=== PATIENT | male | born 1990 | race American Indian/Alaskan Native ===

== ENCOUNTER 2017-03-21 08:20 | Emergency (ER) | payer SELFPAY ==
[2017-03-21 08:37] VITALS: BP 135/89
--- NOTE | 2017-03-21 09:33 | Emergency Department Report ---
ED General Adult HPI - General Chief complaint: Skin Rash Stated complaint: SKIN RASH Time Seen by Provider: 03/21/17 09:07 Source: patient Mode of arrival: Ambulatory Limitations: No Limitations - History of Present Illness Initial comments: PT c/o skin rash x 1 week. PT states the rash starts off as irritation and then changes to bumps. PT states he has had this rash before. PT states he started getting the rash 3-4 years ago and he usually has 2-3 outbreaks a year, usually in the summer. PT states the rash will resolve on it's own. 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 PT states he was treated for scabies multiple times. PT states he does not think he has scabies because his close contacts do not have a rash and they have never had rash. PT states the only thing that helps the rash is prednisone or steroid shot. MD Complaint: rash -: Gradual, week(s) (1) Location: face, left, right, upper extremity, lower extremity Severity scale (0 -10): 0 Quality: burning, constant, other (irritated, itchy ) Consistency: constant Improves with: medication (in the past, this rash has improved with steroids ) Worsens with: other (hurts if pt scratches ) Associated Symptoms: rash. denies: fever/chills, loss of appetite, nausea/ vomiting, shortness of breath Treatments Prior to Arrival: none - Related Data Previous Rx's Medication Instructions Recorded Last Taken Type Cephalexin [Keflex] 500 mg PO Q6HR #40 capsule 03/21/17 Unknown Rx hydrOXYzine PAMOATE [Vistaril] 25 mg PO Q6HR PRN #12 capsule 03/21/17 Unknown Rx methylPREDNISolone [Medrol] 4 mg PO DAILY #1 tab.ds.pk 03/21/17 Unknown Rx Allergies Allergy/AdvReac Type Severity Reaction Status Date / Time iodine Allergy Angioedema Verified 06/06/15 18:26 shell fish Allergy Angioedema Uncoded 06/06/15 18:25 ED Review of Systems ROS: Stated complaint: SKIN RASH Other details as noted in HPI Comment: All other systems reviewed and negative Constitutional: denies: chills, fever Gastrointestinal: denies: abdominal pain, nausea, vomiting Musculoskeletal: denies: back pain Skin: rash ED Past Medical Hx - Past Medical History Hx Asthma: Yes - Surgical History Past Surgical History?: No - Social History Smoking Status: Never Smoker Substance Use Type: Marijuana - Medications Home Medications: Home Medications Medication Instructions Recorded Confirmed Last Taken Type Cephalexin [Keflex] 500 mg PO Q6HR #40 capsule 03/21/17 Unknown Rx hydrOXYzine PAMOATE [Vistaril] 25 mg PO Q6HR PRN #12 capsule 03/21/17 Unknown Rx methylPREDNISolone [Medrol] 4 mg PO DAILY #1 tab.ds.pk 03/21/17 Unknown Rx ED Physical Exam - General Limitations: No Limitations General appearance: alert, in no apparent distress - Head Head exam: Present: atraumatic, normocephalic, normal inspection - Eye Eye exam: Present: normal appearance, PERRL, EOMI. Absent: conjunctival injection - ENT ENT exam: Present: normal exam, mucous membranes moist, normal external ear exam - Neck Neck exam: Present: normal inspection, full ROM - Respiratory Respiratory exam: Present: normal lung sounds bilaterally. Absent: respiratory distress - Cardiovascular Cardiovascular Exam: Present: regular rate, normal rhythm - Extremities Exam Extremities exam: Present: full ROM, normal capillary refill. Absent: normal inspection (rash noted to extremities ), tenderness, pedal edema, joint swelling , calf tenderness - Back Exam Back exam: Present: normal inspection, full ROM - Neurological Exam Neurological exam: Present: alert, oriented X3, normal gait - Psychiatric Psychiatric exam: Present: normal affect, normal mood - Skin Skin exam: Present: warm, dry, rash. Absent: intact, normal color - Expanded Skin Exam Expanded Distribution of rash: generalized (does not involve the palms or soles ) Description of rash: Present: erythematous, macular, papular, indurated (aream on R FA ), other (pt with scattered macular/ papular rash, no linear pattern noted. no rash to finger webs or palms. multiple areas excoriated. scabs present ). Absent: tenderness, vesicular, blisters, urticarial, discharge, fluctuant ED Course Vital Signs 03/21/17 08:33 Temperature 98.6 F Pulse Rate 75 Blood Pressure 135/89 O2 Sat by Pulse 99 Oximetry - Reevaluation(s) Reevaluation #1: 03/21/17 09:36 PT aware of plan of care. PT has no questions at this time. Strict return precautions given. - Pulse Oximetry Interpretation Digit-Finger Initial Pulse Oximetry Readin Actions Taken: none ED Medical Decision Making - Differential Diagnosis rash, scabies, cellulititis, viral rash Critical Care Time: No Critical care attestation.: If time is entered above; I have spent that time in minutes in the direct care of this critically ill patient, excluding procedure time. ED Disposition Clinical Impression: Rash and nonspecific skin eruption, Itching with irritation Disposition: TO HOME OR SELFCARE Is pt being admited?: No Does the pt Need Aspirin: No Condition: Stable Instructions: Sunscreen (On the skin), Acute Rash (ED) Additional Instructions: Follow up with PCP in 3- [address] or drink alcohol after taking Vistaril Finish all of your antibiotics After your rash heals and you no longer have areas of broken skin, make sure you are wearing sunscreen daily Return to the ED if redness, swelling, pain, or fevers develop Prescriptions: Cephalexin [Keflex] 500 mg PO Q6HR #40 capsule hydrOXYzine PAMOATE [Vistaril] 25 mg PO Q6HR PRN #12 capsule PRN Reason: Itching methylPREDNISolone [Medrol] 4 mg PO DAILY #1 tab.ds.pk Referrals: PRIMARY CARE, [Primary Care Provider] - 3-5 Days ANGELINA PERKINS MD [Staff Physician] - 3-5 Days [facility] [Outside] - 3-5 Days Time of Disposition: 09:40
== END 2017-03-21 10:05 | disposition home or self-care (01) ==
LOC: ED 08:20
DX: R21 Rash and other nonspecific skin eruption (principal); F12.10 Cannabis abuse, uncomplicated; J45.909 Unspecified asthma, uncomplicated; Z88.8 Allergy status to other drugs, medicaments and biological substances; Z91.013 Allergy to seafood
CPT/HCPCS: 96372; 99282; J2930